=== PATIENT | male | born 1995 | race Caucasian/White ===

== ENCOUNTER → 2025-09-22 | Outpatient (CLI) | payer BC ==
[~2025-09-22] MED LIST: ACETAMINOPHEN 325 MG TAB PO PRN; PERCOCET 5MG/325MG TAB PO PRN
[2025-09-22 07:04] VITALS: TEMP 97.7
[2025-09-22] MEDS: LIDOCAINE 1% MDV 20 ML VIAL SC SCH (07:05)
[2025-09-22] MEDS: NS (Normal Saline) 0.9% 1,000 ML IV SCH (07:05)
[2025-09-22 08:25] VITALS: BP 120/70; O2SAT 97
== END ==
LOC: M IRPRO 06:41
PROVIDERS: ATTEND Radiology Diagnostic Radiology
DX: R94.5 Abnormal results of liver function studies (principal)